=== PATIENT | male | born 1980 | race Two or more races ===

== ENCOUNTER 2018-05-23 00:07 | Emergency (ER) | payer MEDICAID, OTHER ==
[~2018-05-23] VITALS: Ht 172.7 cm; Wt 83.9 kg
[2018-05-23] MEDS ORDERED: BENAZEPRIL HCL10 MG ORAL (00:29)
[2018-05-23 00:32] VITALS: BP 148/103
--- NOTE | 2018-05-23 00:44 | Emergency Room Report ---
History of Present Illness General Chief Complaint: Multiple Trauma/Fall Source: Patient Present Illness HPI Is a 37-year-old male who is left-hand dominant. He was punching a punching bag without left son. He complaining of pain to that is base of the fifth knuckle. Onset about an hour ago. Pain is 8 out of 10. Worse with movement. Better with rest. No other injury. Allergies: Coded Allergies: No Known Allergies (Unverified , 09/12/15) Patient History Past Medical History: see triage record, old chart reviewed, HTN Past Surgical History: none Pertinent Family History: none Social History: Denies: smoking Immunizations: other Reviewed Nursing Documentation: PMH: Agreed; PSxH: Agreed Nursing Documentation-PMH Past Medical History: No History, Except For Hx Hypertension: Yes - Benazepril 10 mg Review of Systems Eye: Denies: eye pain, blurred vision ENT: Denies: ear pain, nose congestion, throat swelling Respiratory: Denies: cough, shortness of breath Cardiovascular: Denies: chest pain, palpitations Gastrointestinal: Denies: abdominal pain, diarrhea, nausea, vomiting Musculoskeletal: Reports: joint pain; Denies: back pain Skin: Denies: rash Neurological: Denies: headache, numbness Endocrine: Denies: increased thirst, increased urine Hematologic/Lymphatic: Denies: easy bruising All Other Systems: negative except mentioned in HPI Physical Exam Vital Signs Date Time Temp Pulse Resp B/P (MAP) Pulse Ox O2 Delivery O2 Flow Rate FiO2 05/23/18 00:21 97.7 107 18 148/103 95 Room Air vitals with high blood pressure Sp02 EP Interpretation: reviewed, normal General Appearance: well appearing, no apparent distress, alert Head: normocephalic, atraumatic Eyes: bilateral eye PERRL, bilateral eye EOMI ENT: hearing grossly normal, normal pharynx Neck: full range of motion, supple, no meningismus Respiratory: chest non-tender, lungs clear, normal breath sounds Cardiovascular #1: regular rate, rhythm, no murmur Gastrointestinal: normal bowel sounds, non tender, no mass, no organomegaly, no bruit, non-distended Musculoskeletal: back normal, gait/station normal, normal range of motion, tender - Left hand: There is tenderness at the base of the fifth knuckle. No malrotation. Sensation normal. Neurologic: alert, oriented x3 Psychiatric: mood/affect normal Skin: warm/dry Procedures Splinting Splinting : Consent: Verbal Location: left hand Hand-Made Type: plaster Splint: ulnar Pre-Proc Neuro Vasc Exam: normal Post-Proc Neuro Vasc Exam: normal Patient Tolerated: Well Complications: None Medical Decision Making Diagnostic Impression: Primary Impression: Metacarpal bone fracture Qualified Codes: S62.397A - Other fracture of fifth metacarpal bone, left hand , initial encounter for closed fracture ER Course Patient presents with injury to his left hand. He had a previous boxer fracture. He may of had an another fracture of the old fracture site. No displacement. No malrotation. Patient splinted and will be discharged home. Other X-Ray Diagnostic Results Other X-Ray Diagnostic Results : X-Ray ordered: Left hand x-rays # of Views/Limited Vs Complete: 3 View Indication: Pain EP Interpretation: Yes Interpretation: no dislocation, no soft tissue swelling, other - Nondisplaced fracture of 5th MC bone Last Vital Signs Date Time Temp Pulse Resp B/P (MAP) Pulse Ox O2 Delivery O2 Flow Rate FiO2 05/23/18 00:32 97.7 98 18 148/103 95 Room Air Status: improved Disposition: HOME, SELF-CARE Condition: Stable Scripts Ibuprofen* (MOTRIN*) 600 Mg Tablet 600 MG ORAL THREE TIMES A DAY, #30 TAB 0 Refills Prov: Zbigniew Chin MD 05/23/18 Hydrocodone/Acetaminophen 5-325* (HYDROCODONE/ACETAMINOPHEN 5-325*) 1 Each Tablet 1 TAB ORAL Q6H PRN for For Pain, #15 TAB 0 Refills Prov: Zbigniew Chin MD 05/23/18 Referrals: NON PHYSICIAN (PCP) Additional Instructions: Ice pack to the area. Wear splint for comfort. Follow-up with your doctor in 7 days. Return if worse. Zbigniew Chin MD May 23, 2018 00:44
[2018-05-23] MEDS ORDERED: HYDROCODON-ACE1 EA15 ORAL (01:31)
[2018-05-23] MEDS ORDERED: IBUPROFEN600 MG ORAL (01:31)
[2018-05-23 01:40] VITALS: BP 144/98
--- NOTE | 2018-05-23 10:42 | Diagnostic Imaging Report ---
Indication: left hand pain. Findings: 3 views of the left hand were obtained. There is a fracture of the distal fifth metacarpal with some impaction. Soft tissue swelling noted. IMPRESSION: Acute fracture distal fifth metacarpal
== END 2018-05-23 01:40 | disposition home or self-care (01) ==
LOC: EMR 00:27
DX: S62.397A Other fracture of fifth metacarpal bone, left hand, initial encounter for closed fracture (principal); W22.8XXA Striking against or struck by other objects, initial encounter; Y92.89 Other specified places as the place of occurrence of the external cause; I10 Essential (primary) hypertension
CPT/HCPCS: 29125; 99283